=== PATIENT | female | born 1940 | race Caucasian/White ===

== ENCOUNTER 2022-03-31 07:05 | Day surgery (SDC) | payer OTHER ==
[2022-03-30 13:04] VITALS: BMI 21.8
[2022-03-31] MEDS ORDERED: PROMETHAZINE HCL 25 MG/1 ML VIAL IVPUSH PRN (09:22)
[2022-03-31] MEDS ORDERED: ACETAMINOPHEN 500 MG TABLET (FP) PO PRN (09:22)
[2022-03-31] MEDS ORDERED: LACTATED RINGERS SOLUTION 1,000 ML IV SCH (09:30)
[2022-03-31] MEDS ORDERED: KETAMINE HCL 500 MG/10 ML VIAL ONE (09:37)
[2022-03-31] MEDS ORDERED: METOPROLOL TARTRATE 5 MG/5 ML VIAL ONE (09:50)
[2022-03-31 11:48] VITALS: RESP 16; TEMP 98.9
[2022-03-31 11:51] VITALS: BP 173/81; PULSE 92
== END 2022-03-31 11:40 | disposition home or self-care (01) ==
LOC: FECT 07:05
PROVIDERS: ATTEND Psychiatry & Neurology Psychiatry
PROC: GZB4ZZZ Other Electroconvulsive Therapy (ICD-10-PCS; principal; 2022-03-31 09:48)
DX: F32.A Depression, unspecified (principal)
CPT/HCPCS: 90870; 94760; C9803-CS; U0003; U0005

== ENCOUNTER 2022-04-03 07:44 | Day surgery (SDC) | payer OTHER ==
[2022-03-31 17:57] VITALS: BMI 21.8
[2022-04-03] MEDS ORDERED: ACETAMINOPHEN 325 MG TABLET (FP) PO PRN (09:34)
[2022-04-03] MEDS ORDERED: PROMETHAZINE HCL 25 MG/1 ML VIAL IVPUSH PRN (09:34)
[2022-04-03] MEDS ORDERED: LACTATED RINGERS SOLUTION 1,000 ML IV SCH (09:45)
[2022-04-03] MEDS ORDERED: KETAMINE HCL 500 MG/10 ML VIAL ONE (10:05)
[2022-04-03] MEDS ORDERED: METOPROLOL TARTRATE 5 MG/5 ML VIAL ONE (10:12)
[2022-04-03] MEDS ORDERED: hydrALAZINE HCL 20 MG/ML VIAL ONE (10:20)
[2022-04-03 11:35] VITALS: TEMP 98.1
[2022-04-03 12:01] VITALS: BP 124/64; PULSE 103; RESP 18
== END 2022-04-03 12:32 | disposition home or self-care (01) ==
LOC: FECT 07:44
PROVIDERS: ATTEND Psychiatry & Neurology Psychiatry
PROC: GZB4ZZZ Other Electroconvulsive Therapy (ICD-10-PCS; principal; 2022-04-03 10:13)
DX: F32.A Depression, unspecified (principal)
CPT/HCPCS: 90870; 94760

== ENCOUNTER 2022-04-07 07:51 | Day surgery (SDC) | payer OTHER ==
[2022-04-02 15:53] VITALS: BMI 21.8
[2022-04-07] MEDS ORDERED: KETAMINE HCL 500 MG/10 ML VIAL ONE (11:01)
[2022-04-07] MEDS ORDERED: METOPROLOL TARTRATE 5 MG/5 ML VIAL ONE (12:12)
[2022-04-07 12:47] VITALS: RESP 18; TEMP 98
[2022-04-07 13:19] VITALS: BP 156/75; PULSE 95
[2022-04-07] MEDS ORDERED: METOPROLOL TARTRATE 5 MG/5 ML VIAL IVPUSH ONE (13:44)
== END 2022-04-07 13:35 | disposition home or self-care (01) ==
LOC: FECT 07:51
PROVIDERS: ATTEND Psychiatry & Neurology Psychiatry
PROC: GZB4ZZZ Other Electroconvulsive Therapy (ICD-10-PCS; principal; 2022-04-07 11:14)
DX: F32.A Depression, unspecified (principal)
CPT/HCPCS: 90870; 94760; C9803-CS; U0003; U0005

== ENCOUNTER 2022-04-09 07:25 | Day surgery (SDC) | payer OTHER ==
[2022-04-06 14:23] VITALS: BMI 21.8
[2022-04-09] MEDS ORDERED: ONDANSETRON 4 MG/2 ML VIAL ONE (09:43)
[2022-04-09 11:40] VITALS: RESP 16; TEMP 97.8
[2022-04-09 11:43] VITALS: BP 133/60; PULSE 92
== END 2022-04-09 11:20 | disposition home or self-care (01) ==
LOC: FECT 07:25
PROVIDERS: ATTEND Psychiatry & Neurology Psychiatry
PROC: GZB4ZZZ Other Electroconvulsive Therapy (ICD-10-PCS; principal; 2022-04-09 09:35)
DX: F33.2 Major depressive disorder, recurrent severe without psychotic features (principal)
CPT/HCPCS: 90870; 94760

== ENCOUNTER 2022-04-10 07:08 | Day surgery (SDC) | payer OTHER ==
[2022-04-08 16:25] VITALS: BMI 21.8
[2022-04-10] MEDS ORDERED: ADENOSINE 6 MG/2 ML VIAL IVPUSH ONE (09:20)
[2022-04-10] MEDS ORDERED: METOPROLOL TARTRATE 5 MG/5 ML VIAL ONE ×2 (09:25→09:30)
[2022-04-10] MEDS ORDERED: ONDANSETRON 4 MG/2 ML VIAL IVPUSH PRN (10:03)
[2022-04-10] MEDS ORDERED: LACTATED RINGERS SOLUTION 1,000 ML IV SCH (10:15)
[2022-04-10 12:09] VITALS: TEMP 97.3
[2022-04-10 12:46] VITALS: BP 120/75; PULSE 95; RESP 18
== END 2022-04-10 10:34 | disposition short-term general hospital (02) ==
LOC: FECT 07:08
PROVIDERS: ATTEND Psychiatry & Neurology Psychiatry
PROC: GZB4ZZZ Other Electroconvulsive Therapy (ICD-10-PCS; principal; 2022-04-10 09:00)
DX: F32.A Depression, unspecified (principal); Z53.8 Procedure and treatment not carried out for other reasons; I49.9 Cardiac arrhythmia, unspecified
CPT/HCPCS: 94760; C9803-CS; U0003; U0005

== ENCOUNTER 2022-04-10 10:40 | Emergency (ER) | payer OTHER ==
[2022-04-10 10:56] VITALS: TEMP 98.7; BMI 21.6
[2022-04-10] MEDS ORDERED: METOPROLOL TARTRATE 5 MG/5 ML VIAL IVPUSH ONE (11:07)
[2022-04-10] MEDS ORDERED: SODIUM CHLORIDE 0.9% 500 ML INFUS.BAG IV ONE ×2 (11:08→11:28)
[2022-04-10] MEDS ORDERED: METOPROLOL TARTRATE 25 MG TABLET (FP) PO ONE (11:08)
[2022-04-10] MEDS ORDERED: LORazepam 1 MG TABLET PO ONE (11:27)
[2022-04-10] MEDS ORDERED: METOPROLOL TARTRATE 5 MG/5 ML VIAL ONE (11:27)
[2022-04-10] MEDS ORDERED: METOPROLOL TARTRATE 25 MG TABLET (FP) ONE (11:27)
[2022-04-10] MEDS ORDERED: LORazepam 0.5 MG TABLET ONE (11:34)
[2022-04-10 11:55] LABS: INR 1.09 (0.83-1.09); PROTHROMBIN TIME (PATIENT) 12.5 SEC (9.7-13.0)
[2022-04-10 11:57] LABS: ACTIVATED PTT 27.1 SECONDS (25.2-36.5)
[2022-04-10 12:01] LABS: ALBUMIN 3.6 g/dl (3.4-5.0); BILIRUBIN,TOTAL 0.9 mg/dl (0.2-1); CREATININE 0.7 mg/dl (0.55-1.3); TOT PROT 6.1 g/dl (6.4-8.2)
[2022-04-10 12:12] LABS: MAGNESIUM 1.9 mg/dL (1.8-2.4); PHOSPHOROUS 2.5 mg/dl (2.5-4.9)
[2022-04-10 12:20] LABS: HEMATOCRIT 35.7 % (32.4-45.2); HEMOGLOBIN 12.6 G/dL (10.7-15.3); MCH 32.8 pg (25.7-33.7); MCHC 35.2 g/dl (32.0-36.0); MEAN CELL VOLUME 93.3 fl (80-96); MEAN PLT VOLUME 7.9 fl (7.5-11.1); PLATELET COUNT 265.1 10^3/uL (134-434); RBC 3.83 10^6/uL (3.60-5.2); RDW 13.9 % (11.6-15.6); WHITE BLOOD COUNT 6.8 10^3/uL (4.0-10.8)
[2022-04-10 13:13] VITALS: BP 113/59; PULSE 80; RESP 20
[2022-04-10 14:26] LABS: PLATELET ESTIMATE ADEQUATE
[2022-04-10] MEDS ORDERED: ACETAMINOPHEN 120 MG SUPP.RECT RC ONE (14:28)
== END 2022-04-10 15:48 | disposition home or self-care (01) ==
LOC: FER 10:40
PROC: 3E033GC Introduction of Other Therapeutic Substance into Peripheral Vein, Percutaneous Approach (ICD-10-PCS; principal; 2022-04-10)
DX: I48.20 Chronic atrial fibrillation, unspecified (principal)
CPT/HCPCS: 36415; 71045-TC-FY; 80053; 83735; 84100; 84443; 84484; 85025; 85610; 85730; 93005; 99285-25

== ENCOUNTER 2022-04-14 08:31 | Day surgery (SDC) | payer OTHER ==
[2022-04-09 13:56] VITALS: BMI 21.8
[2022-04-14] MEDS ORDERED: ONDANSETRON 4 MG/2 ML VIAL ONE (09:41)
[2022-04-14] MEDS ORDERED: PROPOFOL 20 ML ONE (09:41)
[2022-04-14] MEDS ORDERED: LACTATED RINGERS SOLUTION 1,000 ML IV SCH (10:15)
[2022-04-14 10:49] VITALS: RESP 16
[2022-04-14 11:51] VITALS: BP 149/71; PULSE 57; TEMP 97.7
== END 2022-04-14 11:49 | disposition home or self-care (01) ==
LOC: FECT 08:31
PROVIDERS: ATTEND Psychiatry & Neurology Psychiatry
PROC: GZB4ZZZ Other Electroconvulsive Therapy (ICD-10-PCS; principal; 2022-04-14 09:47)
DX: F32.A Depression, unspecified (principal)
CPT/HCPCS: 90870; 94760; C9803-CS; U0003; U0005

== ENCOUNTER 2022-04-16 07:45 | Day surgery (SDC) | payer OTHER ==
[2022-04-14 12:10] VITALS: BMI 21.8
[2022-04-16] MEDS ORDERED: KETAMINE HCL 500 MG/10 ML VIAL ONE (09:22)
[2022-04-16 10:18] VITALS: TEMP 97.8
[2022-04-16 10:45] VITALS: RESP 18
[2022-04-16 11:28] VITALS: BP 151/61; PULSE 63
== END 2022-04-16 11:10 | disposition home or self-care (01) ==
LOC: FECT 07:45
PROVIDERS: ATTEND Psychiatry & Neurology Psychiatry
PROC: GZB4ZZZ Other Electroconvulsive Therapy (ICD-10-PCS; principal; 2022-04-16 09:48)
DX: F32.A Depression, unspecified (principal)
CPT/HCPCS: 90870; 94760

== ENCOUNTER 2022-04-17 08:09 | Day surgery (SDC) | payer OTHER ==
[2022-04-15 14:23] VITALS: BMI 21.8
[2022-04-17] MEDS ORDERED: KETAMINE HCL 500 MG/10 ML VIAL ONE (09:50)
[2022-04-17] MEDS ORDERED: ONDANSETRON 4 MG/2 ML VIAL IVPUSH PRN (10:31)
[2022-04-17] MEDS ORDERED: ACETAMINOPHEN 325 MG TABLET (FP) PO PRN (10:31)
[2022-04-17] MEDS ORDERED: LACTATED RINGERS SOLUTION 1,000 ML IV SCH (10:45)
[2022-04-17 11:20] VITALS: RESP 18; TEMP 97.7
[2022-04-17 11:50] VITALS: BP 162/72; PULSE 69
== END 2022-04-17 11:45 | disposition home or self-care (01) ==
LOC: FECT 08:09
PROVIDERS: ATTEND Psychiatry & Neurology Psychiatry
PROC: GZB4ZZZ Other Electroconvulsive Therapy (ICD-10-PCS; principal; 2022-04-17 10:13)
DX: F33.2 Major depressive disorder, recurrent severe without psychotic features (principal)
CPT/HCPCS: 90870; 94760; C9803-CS; U0003; U0005

== ENCOUNTER 2022-04-21 07:38 | Day surgery (SDC) | payer OTHER ==
[2022-04-20 15:50] VITALS: BMI 21.8
[2022-04-21 08:14] VITALS: RESP 18
[2022-04-21] MEDS ORDERED: KETAMINE HCL 500 MG/10 ML VIAL ONE (09:23)
[2022-04-21 10:17] VITALS: TEMP 97.8
[2022-04-21] MEDS ORDERED: LABETALOL HCL 5 MG/1 ML (100MG/20 ML VIAL) ONE (10:34)
[2022-04-21 11:32] VITALS: BP 131/88; PULSE 69
== END 2022-04-21 12:50 | disposition home or self-care (01) ==
LOC: FECT 07:38
PROVIDERS: ATTEND Psychiatry & Neurology Psychiatry
PROC: GZB4ZZZ Other Electroconvulsive Therapy (ICD-10-PCS; principal; 2022-04-21 09:45)
DX: F33.2 Major depressive disorder, recurrent severe without psychotic features (principal)
CPT/HCPCS: 90870; 94760; C9803-CS; U0003; U0005

== ENCOUNTER 2022-05-07 09:37 | Day surgery (SDC) | payer OTHER ==
[2022-05-05 15:13] VITALS: BMI 21.8
[2022-05-07 13:23] VITALS: RESP 18; TEMP 97
[2022-05-07 14:03] VITALS: BP 130/70; PULSE 72
== END 2022-05-07 14:06 | disposition home or self-care (01) ==
LOC: FECT 09:37
PROVIDERS: ATTEND Psychiatry & Neurology Psychiatry
PROC: GZB4ZZZ Other Electroconvulsive Therapy (ICD-10-PCS; principal; 2022-05-07 12:04)
DX: F32.A Depression, unspecified (principal)
CPT/HCPCS: 90870; 94760

== ENCOUNTER 2022-05-14 08:32 | Day surgery (SDC) | payer MEDICARE, OTHER ==
[2022-05-12 16:59] VITALS: BMI 21.8
[2022-05-14 12:58] VITALS: BP 146/61; PULSE 71; RESP 18; TEMP 98.2
== END 2022-05-14 12:48 | disposition home or self-care (01) ==
LOC: FECT 08:32
PROVIDERS: ATTEND Psychiatry & Neurology Psychiatry
PROC: GZB4ZZZ Other Electroconvulsive Therapy (ICD-10-PCS; principal; 2022-05-14 11:16)
DX: F32.A Depression, unspecified (principal)
CPT/HCPCS: 90870; 94760

== ENCOUNTER 2022-05-21 06:26 | Day surgery (SDC) | payer MEDICARE, OTHER ==
[2022-05-18 07:47] VITALS: BMI 21.8
[2022-05-21] MEDS ORDERED: KETAMINE HCL 500 MG/10 ML VIAL ONE (08:24)
[2022-05-21 09:52] VITALS: RESP 18; TEMP 97.8
[2022-05-21 10:21] VITALS: BP 152/68; PULSE 52
== END 2022-05-21 10:54 | disposition home or self-care (01) ==
LOC: FECT 06:26
PROVIDERS: ATTEND Psychiatry & Neurology Psychiatry
PROC: GZB4ZZZ Other Electroconvulsive Therapy (ICD-10-PCS; principal; 2022-05-21 08:41)
DX: F32.A Depression, unspecified (principal)
CPT/HCPCS: 90870; 94760

== ENCOUNTER 2022-05-28 08:54 | Day surgery (SDC) | payer OTHER, MEDICARE ==
[2022-05-25 16:52] VITALS: BMI 21.8
[2022-05-28] MEDS ORDERED: KETAMINE HCL 500 MG/10 ML VIAL ONE (09:55)
[2022-05-28 11:19] VITALS: PULSE 67; RESP 16; TEMP 97.8
[2022-05-28 12:25] VITALS: BP 127/77
== END 2022-05-28 11:45 | disposition home or self-care (01) ==
LOC: FECT 08:54
PROVIDERS: ATTEND Psychiatry & Neurology Psychiatry
PROC: GZB4ZZZ Other Electroconvulsive Therapy (ICD-10-PCS; principal; 2022-05-28 10:08)
DX: F32.A Depression, unspecified (principal)
CPT/HCPCS: 90870; 94760

== ENCOUNTER 2022-06-04 11:36 | Day surgery (SDC) | payer OTHER, MEDICARE ==
[2022-05-28 12:13] VITALS: BMI 21.6
[2022-06-04 12:11] VITALS: TEMP 97.8
[2022-06-04] MEDS ORDERED: KETAMINE HCL 500 MG/10 ML VIAL ONE (12:33)
[2022-06-04] MEDS ORDERED: KETOROLAC TROMETHAMINE 30 MG/1 ML VIAL ONE (12:34)
[2022-06-04 14:59] VITALS: BP 165/80; PULSE 169; RESP 64
== END 2022-06-04 14:30 | disposition home or self-care (01) ==
LOC: FECT 11:36
PROVIDERS: ATTEND Psychiatry & Neurology Psychiatry
PROC: GZB4ZZZ Other Electroconvulsive Therapy (ICD-10-PCS; principal; 2022-06-04 12:52)
DX: F32.A Depression, unspecified (principal)
CPT/HCPCS: 90870; 94760

== ENCOUNTER 2022-06-23 08:54 | Day surgery (SDC) | payer OTHER, MEDICARE ==
[2022-06-05 18:00] VITALS: BMI 21.6
[2022-06-23] MEDS ORDERED: KETAMINE HCL 500 MG/10 ML VIAL ONE (10:18)
[2022-06-23 11:24] VITALS: RESP 18
[2022-06-23 14:43] VITALS: BP 133/76; PULSE 74; TEMP 98.2
== END 2022-06-23 13:00 | disposition home or self-care (01) ==
LOC: FECT 08:54
PROVIDERS: ATTEND Psychiatry & Neurology Psychiatry
PROC: GZB4ZZZ Other Electroconvulsive Therapy (ICD-10-PCS; principal; 2022-06-23 10:37)
DX: F32.A Depression, unspecified (principal)
CPT/HCPCS: 90870; 94760